=== PATIENT | male | born 1965 | race Caucasian/White ===

== ENCOUNTER → 2017-06-03 | Outpatient (CLI) | payer OTHER ==
--- NOTE | 2017-06-03 14:01 | US ---
EXAMINATION TYPE: US venous doppler duplex LE DATE OF EXAM: 06/03/2017 7:43 AM COMPARISON: NONE CLINICAL HISTORY: M79.604 Pain in right leg. Edema right leg, wound bottom of right foot x 2 years LOWER EXTREMITY VENOUS INSUFFICIENCY SIDE PERFORMED: bilateral 1) Color flow is present and patency is documented in the following vessels. No DVT or SVT is noted . EIV Common Femoral Vein Deep Femoral Vein Femoral Vein Popliteal Vein Proximal Calf Veins Greater Saph Vein Upper Small Saph Vein 2) There is venous reflux noted at the following venous levels: right EIV IMPRESSION: Venous reflux within the right external iliac vein. No deep venous thrombosis is identifi ed during this examination of the right lower extremity.
== END | disposition home or self-care (01) ==
LOC: RADUSWWP 06:56
PROVIDERS: ATTEND Surgery
DX: I87.2 Venous insufficiency (chronic) (peripheral) (principal); E13.621 Other specified diabetes mellitus with foot ulcer; M79.604 Pain in right leg
CPT/HCPCS: 93923; 93970

== ENCOUNTER → 2020-04-16 | Outpatient (CLI) | payer OTHER | END | disposition home or self-care (01) | LOC: LABWHC1 11:22 | PROVIDERS: ATTEND Family Medicine | DX: R05 Cough (principal); R50.9 Fever, unspecified; Z11.59 Encounter for screening for other viral diseases | CPT/HCPCS: U0003; C9803 ==

== ENCOUNTER 2020-09-01 18:28 | Inpatient (IN) | payer OTHER ==
--- NOTE | 2020-09-01 20:11 | XR ---
EXAMINATION TYPE: XR foot complete RT DATE OF EXAM: 09/01/2020 COMPARISON: 06/17/2017 HISTORY: Plantar ulcer. Foot infection TECHNIQUE: 3 views FINDINGS: There is soft tissue air bubbles in the forefoot on the lateral aspect of the foot at the f ourth and fifth metatarsal phalangeal joints. There is destructive changes on both sides of the third MP joint. There is plantar calcaneal spurring. There is some spurring of the intertarsal joints. IMPRESSION: Destructive changes on both sides of the third MP joint consistent with chronic osteomyel itis is a change compared to old exam. Soft tissue air bubbles consistent with cellulitis.
[2020-09-01] MEDS ORDERED: VANCOMYCIN IV PER PHARMACY 1 EACH MISC MISCELLANE PRN (20:25)
[2020-09-01] MEDS ORDERED: AMPICILLIN-SULBACTAM 3 GM in SODIUM CHLORIDE 0.9% 100 ML IVPB STA (20:25)
--- NOTE | 2020-09-01 20:25 | ED ---
General Adult HPI - General Chief complaint: Skin/Abscess/Foreign Body Stated complaint: diabetic wound rt foot Time Seen by Provider: 09/01/20 18:45 Source: patient Mode of arrival: ambulatory Limitations: no limitations - History of Present Illness Initial comments: Patient is a 55-year-old male past history of diabetes who presents to the emergency department reported right foot wound. Patient states that he has had this wound for approximately 5 years. Was going to the wound care clinic until about 2 years ago. States that the wound has been persistent however his has been dressing it. Today he went to Dr. Parker's office and Dr. Parker with concerns that he needed partial amputation therefore sent him into the emergency room for evaluation. Patient admits to increased swelling and drainage. Denies pain no fevers or chills. No history of vascular compromise. No other alleviating, the dictating or modifying factors - Related Data Home Medications Medication Instructions Recorded Confirmed Levothyroxine Sodium [Synthroid] 125 mcg PO DAILY 10/17/15 09/01/20 Cinnamon Bark [Cinnamon] 500 mg PO HS 09/01/20 09/01/20 Losartan-Hctz 50-12.5 mg [Hyzaar 1 tab PO HS 09/01/20 09/01/20 50-12.5] Multivitamins, Thera [Multivitamin 1 tab PO HS 09/01/20 09/01/20 (formulary)] metFORMIN HCL [Glucophage] 1,000 mg PO BID 09/01/20 09/01/20 sitaGLIPtin [Januvia] 50 mg PO HS 09/01/20 09/01/20 Allergies Allergy/AdvReac Type Severity Reaction Status Date / Time No Known Allergies Allergy Verified 09/01/20 19:46 Review of Systems ROS Statement: Those systems with pertinent positive or pertinent negative responses have been documented in the HPI. ROS Other: All systems not noted in ROS Statement are negative. Past Medical History Past Medical History: Diabetes Mellitus, Thyroid Disorder Additional Past Medical History / Comment(s): wound rt foot History of Any Multi-Drug Resistant Organisms: None Reported Past Surgical History: Orthopedic Surgery Additional Past Surgical History / Comment(s): ruben ankles, wound center procedures Past Anesthesia/Blood Transfusion Reactions: No Reported Reaction Past Psychological History: No Psychological Hx Reported Smoking Status: Current every day smoker Past Alcohol Use History: None Reported Past Drug Use History: None Reported - Past Family History Father Family Medical History: Cancer General Exam Limitations: no limitations Course Vital Signs 09/01/20 18:46 Temperature 99.1 F Pulse Rate 98 Respiratory 18 Rate Blood Pressure 176/75 O2 Sat by Pulse 98 Oximetry Medical Decision Making - Medical Decision Making Upon arrival patient is placed into room 28. Thorough history and physical exam was performed. Laboratory studies are obtained. X-rays performed of the patient's right lower externally which demonstrates a strep changes on both sides of the third MCP consistent with chronic osteomyelitis. Cellulitis. Informed the patient that he would require hospitalization for antibiotics for which the patient agreed to. Infectious disease and vascularly consult. Patient remained in stable condition awaiting a bed - Lab Data Result diagrams: 09/01/20 19:46 Lab Results 09/01/20 Range/Units 19:46 WBC 13.3 H (3.8-10.6) k/uL RBC 4.54 (4.30-5.90) m/uL Hgb 13.9 (13.0-17.5) gm/dL Hct 41.3 (39.0-53.0) % MCV 91.0 (80.0-100.0) fL MCH 30.6 (25.0-35.0) pg MCHC 33.7 (31.0-37.0) g/dL RDW 13.5 (11.5-15.5) % Plt Count 345 (150-450) k/uL MPV 7.1 Neutrophils % 73 % Lymphocytes % 15 % Monocytes % 4 % Eosinophils % 3 % Basophils % 2 % Neutrophils # 9.7 H (1.3-7.7) k/uL Lymphocytes # 1.9 (1.0-4.8) k/uL Monocytes # 0.6 (0-1.0) k/uL Eosinophils # 0.4 (0-0.7) k/uL Basophils # 0.2 (0-0.2) k/uL Disposition Clinical Impression: Type 2 diabetes mellitus with right diabetic foot infection, Osteomyelitis Disposition: ADMITTED IP TO THIS HOSP Condition: Serious Is patient prescribed a controlled substance at d/c from ED?: No Referrals: Niraj Parker DO [Primary Care Provider] - 1-2 days Decision to Admit Reason: Admit from EC Decision Date: 09/01/20 Decision Time: 20:25
[2020-09-01] MEDS ORDERED: NALOXONE 0.4 MG/ML 1 ML VIAL IV PRN (20:26)
[2020-09-01] MEDS ORDERED: VANCOMYCIN 2,000 MG in SODIUM CHLORIDE 0.9% 500 ML 500 ML IVPB STA (20:30)
[2020-09-01 20:47] LABS: Basophils # (A) 0.2 k/uL (0-0.2); Basophils % (A) 2 %; Eosinophils # (A) 0.4 k/uL (0-0.7); Eosinophils % (A) 3 %; HCT 41.3 % (39.0-53.0); HGB 13.9 gm/dL (13.0-17.5); Lymphocytes # (A) 1.9 k/uL (1.0-4.8); Lymphocytes % (A) 15 %; MCH 30.6 pg (25.0-35.0); MCHC 33.7 g/dL (31.0-37.0); Mean Platelet Volume 7.1; Monocytes # (A) 0.6 k/uL (0-1.0); Monocytes % (A) 4 %; Neutrophils # (A) 9.7 k/uL (1.3-7.7); Neutrophils % (A) 73 %; Platelet Count 345 k/uL (150-450); RBC 4.54 m/uL (4.30-5.90); RDW 13.5 % (11.5-15.5); WBC 13.3 k/uL (3.8-10.6)
[2020-09-01] MEDS ORDERED: NON FORMULARY DRUG (Cinnamon Bark [Cinnamon] 500 MG Capsule) PO SCH (21:00)
[2020-09-01 21:02] LABS: ALT 27 U/L (4-49); AST 30 U/L (17-59); African American GFR (CKD) >90 (>60 ml/min/1.73 sqM); Albumin 3.8 g/dL (3.5-5.0); Alkaline Phosphatase 72 U/L (38-126); Anion Gap 7 mmol/L; Blood Urea Nitrogen 13 mg/dL (9-20); Calcium 9.3 mg/dL (8.4-10.2); Carbon Dioxide 32 mmol/L (22-30); Chloride 93 mmol/L (98-107); Glucose 253 mg/dL (74-99); Non-African American GFR(CKD) >90 (>60 ml/min/1.73 sqM); Potassium 4.2 mmol/L (3.5-5.1); Sodium 132 mmol/L (137-145); Total Bilirubin 0.4 mg/dL (0.2-1.3); Total Protein 7.8 g/dL (6.3-8.2)
[2020-09-01] MEDS: LOSARTAN-HCTZ 50-12.5 MG 1 EACH TAB PO SCH (21:07)
[2020-09-01] MEDS: MULTIVITAMINS, THERA 1 EACH TAB PO SCH (21:08)
[2020-09-01 21:21] LABS: Erythrocyte Sedimentation Rate 91 mm/hr (0-15)
[2020-09-01 21:32] LABS: C Reactive Protein 176.6 mg/L (<10.0)
--- NOTE | 2020-09-01 22:01 | US ---
EXAMINATION TYPE: US venous doppler duplex LE RT DATE OF EXAM: 09/01/2020 9:40 PM COMPARISON: US 2017 CLINICAL HISTORY: dvt. Pain and swelling x 1 week. No hx of DVT. Patient unsure if he takes a blood t hinner. SIDE PERFORMED: Right TECHNIQUE: The lower extremity deep venous system is examined utilizing real time linear array sonog duran with graded compression, doppler sonography and color-flow sonography. VESSELS IMAGED: Common Femoral Vein Deep Femoral Vein Greater Saphenous Vein * Femoral Vein Popliteal Vein Small Saphenous Vein * Proximal Calf Veins (* superficial vessels) Right Leg: No evidence of DVT in veins imaged at this time from prox calf veins to CFV/GSV. Hypoecho ic area with hyperechoic center and vascular hilum seen within the right groin measuring 5.2 x 4.8 x 2.0 cm. Slightly limited imaging within the groin and of the distal femoral vein due to patient body habitus. IMPRESSION: No evidence of deep vein thrombosis in the right leg. There is large right inguinal lymp h node that measures 5.2 x 2 cm.
[2020-09-02] MEDS: INSULIN ASPART (NovoLOG) 100 UNIT/ML VIAL SQ SCH ×5 (00:03→21:06)
[2020-09-02] MEDS: LEVOTHYROXINE 125 MCG TAB PO SCH (06:39)
[2020-09-02 06:44] LABS: Glucose,Whole Blood 203 mg/dL (75-99)
[2020-09-02 09:32] LABS: Basophils # (A) 0.1 k/uL (0-0.2); Basophils % (A) 1 %; Eosinophils # (A) 0.4 k/uL (0-0.7); Eosinophils % (A) 3 %; HCT 41.9 % (39.0-53.0); HGB 13.8 gm/dL (13.0-17.5); Lymphocytes % (A) 16 %; MCH 30.3 pg (25.0-35.0); MCHC 32.9 g/dL (31.0-37.0); Mean Platelet Volume 7.1; Monocytes # (A) 0.4 k/uL (0-1.0); Monocytes % (A) 3 %; Neutrophils # (A) 9.2 k/uL (1.3-7.7); Neutrophils % (A) 74 %; Platelet Count 375 k/uL (150-450); RBC 4.56 m/uL (4.30-5.90); RDW 13.9 % (11.5-15.5); WBC 12.5 k/uL (3.8-10.6)
[2020-09-02 09:49] LABS: African American GFR (CKD) >90 (>60 ml/min/1.73 sqM); Anion Gap 8 mmol/L; Blood Urea Nitrogen 11 mg/dL (9-20); Carbon Dioxide 32 mmol/L (22-30); Chloride 94 mmol/L (98-107); Glucose 213 mg/dL (74-99); Non-African American GFR(CKD) >90 (>60 ml/min/1.73 sqM); Potassium 4.2 mmol/L (3.5-5.1); Sodium 134 mmol/L (137-145)
[2020-09-02] MEDS ORDERED: VANCOMYCIN 2,250 MG in SODIUM CHLORIDE 0.9% 500 ML 500 ML IVPB SCH (10:00)
[2020-09-02] MEDS ORDERED: IV FLUID CONTINUATION 800 ML IV ONE (10:57)
[2020-09-02 11:15] LABS: Glucose,Whole Blood 173 mg/dL (75-99)
[2020-09-02] MEDS ORDERED: MIDAZOLAM 2 MG/2 ML VIAL ONE (11:46)
[2020-09-02] MEDS ORDERED: KETAMINE 10 MG/ML 20 ML VIAL ONE (11:46)
[2020-09-02] MEDS ORDERED: fentaNYL (PF) 50 MCG/ML 2 ML AMP ONE (11:46)
[2020-09-02] MEDS ORDERED: PROPOFOL 10 MG/ML 20 ML VIAL IV ONE (11:46)
[2020-09-02] MEDS ORDERED: LACTATED RINGERS 1,000 ML IV ONE (11:50)
--- NOTE | 2020-09-02 11:52 | P.GSCN ---
History of Present Illness Consult date: 09/02/20 Reason for Consult: Chronic nonhealing right foot diabetic ulcer History of present illness: As a pleasant 55-year-old male patient with a history of diabetes or hypertension, and a chronic nonhealing wound to the right foot. The patient states he has had the wound on the plantar aspect of his right foot for 5 years, with intermittent wound care management. He has not been seen by the wound care center in over 2 years. He states that he follows with Dr. Parker and they have been managing the wound in the office, other than that his has been managing it for the last couple months. He states he has had increased pain and drainage from the wound on the plantar aspect of his foot. He has pain in all of his toes. He states he also noted redness in his spreading up his leg for the last week. He denies any fevers or chills. Eyes any prior history of peripheral arterial disease. 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 A x-ray the right foot was performed while in the emergency department that shows destructive changes on both sides of the third MTP joint consistent with chronic osteomyelitis is a change compared to the exam. Soft tissue air bubbles consistent with cellulitis. Venous Doppler was also completed of the right lower extremity that shows no evidence of deep vein thrombosis of the right leg. There is large right inguinal lymph node that measures 5.2 x 2 cm. Review of Systems A 14 point review systems was completed all pertinent positives and negatives as stated in the HPI. Past Medical History Past Medical History: Diabetes Mellitus, Hypertension, Thyroid Disorder Additional Past Medical History / Comment(s): wound rt foot History of Any Multi-Drug Resistant Organisms: None Reported Past Surgical History: Orthopedic Surgery Additional Past Surgical History / Comment(s): ruben ankles, wound center procedures Past Anesthesia/Blood Transfusion Reactions: No Reported Reaction Past Psychological History: No Psychological Hx Reported Smoking Status: Current every day smoker Past Alcohol Use History: None Reported Additional Past Alcohol Use History / Comment(s): has smoked for about 30 yrs; cut down to 5-6 cigarettes daily Past Drug Use History: None Reported - Past Family History Father Family Medical History: Cancer Medications and Allergies Home Medications Medication Instructions Recorded Confirmed Type Levothyroxine Sodium [Synthroid] 125 mcg PO DAILY 10/17/15 09/01/20 History Cinnamon Bark [Cinnamon] 500 mg PO HS 09/01/20 09/01/20 History Losartan-Hctz 50-12.5 mg [Hyzaar 1 tab PO HS 09/01/20 09/01/20 History 50-12.5] Multivitamins, Thera [Multivitamin 1 tab PO HS 09/01/20 09/01/20 History (formulary)] metFORMIN HCL [Glucophage] 1,000 mg PO BID 09/01/20 09/01/20 History sitaGLIPtin [Januvia] 50 mg PO HS 09/01/20 09/01/20 History Allergies Allergy/AdvReac Type Severity Reaction Status Date / Time No Known Allergies Allergy Verified 09/02/20 11:03 Surgical - Exam Vital Signs Temp Pulse Resp BP Pulse Ox 99.1 F 98 18 176/75 98 09/01/20 18:46 09/01/20 18:46 09/01/20 18:46 09/01/20 18:46 09/01/20 18:46 General appearance: The patient is alert, oriented, in no acute distress. Obese. HET: Head is normocephalic and atraumatic. Heart: S1 S2. Regular rate and rhythm. Lungs: No crackles or wheezes are heard. Abdomen: Soft, nontender, nondistended Extremities: Right lower extremity with edema, and redness half way up ty. Second toe with wound and scabbing at distal tip. Third toe with wet gangrene, soft. Fourth toe right, plantar surface cracked with drainage. Ulcer on plantar surface of foot measuring 2.5 x 3.5 cm, with 1-1/2 cm opening with undermining. 8 mm deep with foul odor and yellow drainage on dressing. Bilateral palpable dorsalis pedis pulses, positive bilateral posterior tibialis signal. Neurological: No focal deficits. Strength and sensation are grossly intact. Results X-ray of the right foot shows destructive changes on both sides of the third MTP joint consistent with chronic osteomyelitis is a change compared to the exam. Soft tissue air bubbles consistent with cellulitis. Venous Doppler was also completed of the right lower extremity that shows no evidence of deep vein thrombosis of the right leg. There is large right inguinal lymph node that measures 5.2 x 2 cm. - Labs 09/02/20 09:17 09/02/20 09:17 Abnormal Lab Results - Last 24 Hours (Table) 09/01/20 09/01/20 09/02/20 Range/Units 19:46 19:46 06:43 WBC 13.3 H (3.8-10.6) k/uL Neutrophils # 9.7 H (1.3-7.7) k/uL ESR 91 H (0-15) mm/hr Sodium 132 L (137-145) mmol/L Chloride 93 L (98-107) mmol/L Carbon Dioxide 32 H (22-30) mmol/L Glucose 253 H (74-99) mg/dL POC Glucose (mg/dL) 203 H (75-99) mg/dL C-Reactive Protein 176.6 H (<10.0) mg/L Microbiology - Last 24 Hours (Table) 09/01/20 19:46 Gram Stain - Preliminary Foot - Right Wound Culture - Preliminary Diabetes panel 09/01/20 Range/Units 19:46 Sodium 132 L (137-145) mmol/L Potassium 4.2 (3.5-5.1) mmol/L Chloride 93 L (98-107) mmol/L Carbon Dioxide 32 H (22-30) mmol/L BUN 13 (9-20) mg/dL Creatinine 0.72 (0.66-1.25) mg/dL Glucose 253 H (74-99) mg/dL Calcium 9.3 (8.4-10.2) mg/dL AST 30 (17-59) U/L ALT 27 (4-49) U/L Alkaline Phosphatase 72 (38-126) U/L Total Protein 7.8 (6.3-8.2) g/dL Albumin 3.8 (3.5-5.0) g/dL Calcium panel 09/01/20 Range/Units 19:46 Calcium 9.3 (8.4-10.2) mg/dL Albumin 3.8 (3.5-5.0) g/dL Pituitary panel 09/01/20 Range/Units 19:46 Sodium 132 L (137-145) mmol/L Potassium 4.2 (3.5-5.1) mmol/L Chloride 93 L (98-107) mmol/L Carbon Dioxide 32 H (22-30) mmol/L BUN 13 (9-20) mg/dL Creatinine 0.72 (0.66-1.25) mg/dL Glucose 253 H (74-99) mg/dL Calcium 9.3 (8.4-10.2) mg/dL Adrenal panel 09/01/20 Range/Units 19:46 Sodium 132 L (137-145) mmol/L Potassium 4.2 (3.5-5.1) mmol/L Chloride 93 L (98-107) mmol/L Carbon Dioxide 32 H (22-30) mmol/L BUN 13 (9-20) mg/dL Creatinine 0.72 (0.66-1.25) mg/dL Glucose 253 H (74-99) mg/dL Calcium 9.3 (8.4-10.2) mg/dL Total Bilirubin 0.4 (0.2-1.3) mg/dL AST 30 (17-59) U/L ALT 27 (4-49) U/L Alkaline Phosphatase 72 (38-126) U/L Total Protein 7.8 (6.3-8.2) g/dL Albumin 3.8 (3.5-5.0) g/dL Assessment and Plan Assessment: 1. Right foot chronic nonhealing diabetic ulcer 2. Osteomyelitis right third toe foot 3. Cellulitis right lower extremity 4. Diabetes mellitus 5. Hypertension Plan: 1. NPO 2. Patient will be scheduled for transmetatarsal amputation of the right foot today with Dr. Seals 3. Continue IV antibiotics per recommendations from infectious disease The impression and plan of care has been dictated as directed. Dr. Seals I performed a history and examination of this patient, discussed the same with the dictator. I agree with the dictator's note ,documented as a scribe. Any additional findings or plans will be noted.
[2020-09-02] MEDS ORDERED: ceFAZolin 4,000 MG in SODIUM CHLORIDE 0.9% 1,000 ML IRRIGATION ONE (12:31)
[2020-09-02 13:49] LABS: Glucose,Whole Blood 189 mg/dL (75-99)
[2020-09-02 14:14] VITALS: BMI 42.9
[2020-09-02 17:07] LABS: Glucose,Whole Blood 185 mg/dL (75-99)
[2020-09-02] MEDS ORDERED: MORPHINE SULFATE 2 MG/ML SYRINGE IVP PRN (17:52)
[2020-09-02] MEDS: HYDROcodone/APAP 7.5-325MG 1 EACH TAB PO PRN ×2 (18:14→22:41)
[2020-09-02 20:38] LABS: Glucose,Whole Blood 248 mg/dL (75-99)
--- NOTE | 2020-09-02 20:47 | P.OP ---
Date of Procedure: 09/02/20 Preoperative Diagnosis: Right third toe osteomyelitis with gangrene involving the plantar surface of foot Postoperative Diagnosis: Same Procedure(s) Performed: Right transmetatarsal amputation Right negative pressure wound VAC placement Anesthesia: epidural Surgeon: Vin Seals Estimated Blood Loss (ml): 50 Pathology: other (Right forefoot, wound cultures) Condition: stable Disposition: PACU Indications for Procedure: 55-year-old gentleman with history of diabetes and chronic right foot wounds presented to the hospital secondary to gangrene noted by his family physician. Patient has a history of diabetic foot wounds which have been treated in the wound care center for several years. 5 years ago he had a wound that was treated for approximately 3 years and healed and then developed another wound adjacent to this one over the last couple years. 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 He states his has been treating the wounds at home. He noticed increased redness and pain over the last couple of weeks and was seen at his primary cares office and sent in for antibiotics. He underwent xray that showed osteomylelitis involving the 3rd toe with soft tissue involvement. Upon evaluation the plantar wound was tunneling to the 3rd toe and due to this it was determined to perform a transmetatarsal amputation. Description of Procedure: After written and informed consent was obtained from the patient and all risks, benefits and complications were discussed the patient was brought to the operative suite and laid in a supine position. The area of the right foot was prepped and draped in the usual sterile fashion. Timeout was performed and patient was receiving antibiotics. An incision was created in a [place] fashion incorporating the plantar ulcer with a 10 blade scalpel and dissection was carried down to the metatarsal bones with electrocautery. Upon dissection purulent drainage was noted deep to the third toe and ulcer and cultures were obtain. Once the metatarsal bones were dissected a oscillating saw was utilized and toes 1 through 5 were resected at the proximal metatarsal bone. The soft tissue was the removed with a 10 blade scalpel and the forefoot was sent for pathology. Bleeding was controlled with electrocautery. The remaining tissue was then attempted to be approximated for closure but due to the odd shaped incision line due to the plantar wound this was unable to be performed in a tension free repair. The area was irrigated with antibiotic solution and once hemostatic the subcutaneous tissue was reapproximated over the remaining bone with 3-0 Vicryl suture. Skin edges were then reapproximated with 3-0 nylon suture in a vertical mattress fashion. The area that was unable to be brought together was packed with a black sponge and a wound VAC was placed in normal fashion. The patient tolerated the procedure well and was sent to PACU for recovery.
--- NOTE | 2020-09-02 20:49 | P.HPIM ---
History of Present Illness H&P Date: 09/02/20 Patient is a 55-year-old male past history of diabetes who was admitted from the emergency department reported right foot wound. Patient states that he has had this wound for approximately 5 years. However he was first diagnosed in 2015 and sent to vascular surgery and wound care center. Patient never returned my office until 2019. Which he was again treated at the wound care center. In the interim time I'm not too sure where he is doing his diabetic care as he has been noncompliant 2015. He was reestablished and fall late fall of 2019 where he was seen by my nurse practitioner Teresa Pressley who initiated wound care again. States that the wound has been persistent however his has been dressing it. I sent him in for an office yesterday with concerns that he needed partial amputation therefore sent him into the emergency room for evaluation. Patient admits to increased swelling and drainage. Denies pain no fevers or chills. No history of vascular compromise. I'm not aware of patient's current diabetic status as well as his vascular compromise. Review of Systems GENERAL: Patient denies fever. Denies chills. EYES: Denies blurred vision. Denies vision changes. Denies eye pain. EARS, NOSE, MOUTH, & THROAT: Denies headache. Denies sore throat. Denies ear pain. RESPIRATORY: Denies cough. Denies shortness of breath. Denies sputum production. Denies hemoptysis. CARDIOVASCULAR: Denies chest pain or pressure. Denies palpitations. Denies arrhythmias. GASTROINTESTINAL: Denies abdominal pain. Denies diarrhea. Denies constipation. Denies nausea. Denies vomiting. Denies heartburn. Denies blood in the stool. GENITOURINARY: Denies urinary frequency. Denies burning. Denies dysuria. Denies cloudy urine. Denies blood in the urine. MUSCULOSKELETAL: Gangrenous changes to his right foot and cellulitic changes to his right lower extremity as noted in chief complaint. INTEGUMENTARY: Denies pruitis. Denies rash. PSYCHIATRIC: Denies suicidal or homicial ideations. Patient is visibly upset disorders be home for the holidays ENDOCRINE: Noncompliant diabetes doesn't follow routine visits doesn't follow routine orders. 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 HEMATOLOGIC: Denies bleeding disorders. Past Medical History Past Medical History: Diabetes Mellitus, Hypertension, Thyroid Disorder Additional Past Medical History / Comment(s): wound rt foot History of Any Multi-Drug Resistant Organisms: None Reported Past Surgical History: Orthopedic Surgery Additional Past Surgical History / Comment(s): ruben ankles, wound center procedures Past Anesthesia/Blood Transfusion Reactions: No Reported Reaction Past Psychological History: No Psychological Hx Reported Smoking Status: Current every day smoker Past Alcohol Use History: None Reported Additional Past Alcohol Use History / Comment(s): has smoked for about 30 yrs; cut down to 5-6 cigarettes daily Past Drug Use History: None Reported - Past Family History Father Family Medical History: Cancer Medications and Allergies Home Medications Medication Instructions Recorded Confirmed Type Levothyroxine Sodium [Synthroid] 125 mcg PO DAILY 10/17/15 09/01/20 History Cinnamon Bark [Cinnamon] 500 mg PO HS 09/01/20 09/01/20 History Losartan-Hctz 50-12.5 mg [Hyzaar 1 tab PO HS 09/01/20 09/01/20 History 50-12.5] Multivitamins, Thera [Multivitamin 1 tab PO HS 09/01/20 09/01/20 History (formulary)] metFORMIN HCL [Glucophage] 1,000 mg PO BID 09/01/20 09/01/20 History sitaGLIPtin [Januvia] 50 mg PO HS 09/01/20 09/01/20 History Allergies Allergy/AdvReac Type Severity Reaction Status Date / Time No Known Allergies Allergy Verified 09/02/20 11:03 Physical Exam Osteopathic Statement: *. No significant issues noted on an osteopathic structural exam other than those noted in the History and Physical/Consult. Vitals: Vital Signs Temp Pulse Pulse Pulse Resp BP BP 09/02/20 16:36 66 153/88 09/02/20 16:21 65 144/80 09/02/20 16:07 65 185/112 09/02/20 15:51 63 175/98 09/02/20 15:21 62 157/89 09/02/20 15:07 16 09/02/20 15:06 98.0 F 68 18 140/79 09/02/20 14:59 98.3 F 65 16 127/69 09/02/20 14:16 62 16 168/83 09/02/20 14:00 79 14 156/75 09/02/20 13:45 72 16 174/76 09/02/20 13:35 96.9 F L 69 14 156/71 09/02/20 10:58 70 16 162/72 09/02/20 10:45 98.7 F 74 17 166/83 09/02/20 09:15 97.8 F 73 16 153/77 09/02/20 09:10 16 09/02/20 08:14 73 14 153/77 09/02/20 07:22 99 F 69 18 140/70 09/02/20 06:37 81 19 146/66 09/02/20 01:00 99.8 F H 77 16 128/68 09/01/20 22:17 100.1 F H 79 18 122/66 Pulse Ox 09/02/20 16:36 09/02/20 16:21 09/02/20 16:07 09/02/20 15:51 09/02/20 15:21 09/02/20 15:07 09/02/20 15:06 98 09/02/20 14:59 98 09/02/20 14:16 95 09/02/20 14:00 95 09/02/20 13:45 100 09/02/20 13:35 100 09/02/20 10:58 99 09/02/20 10:45 98 09/02/20 09:15 95 09/02/20 09:10 09/02/20 08:14 96 09/02/20 07:22 95 09/02/20 06:37 95 09/02/20 01:00 95 09/01/20 22:17 95 Intake and Output 09/02/20 09/02/20 09/02/20 06:59 14:59 22:59 Intake Total 1051.5 Output Total 50 Balance 1001.5 Intake: IV 1051.5 Output: Estimated Blood Loss 50 Other: # Voids 1 # Bowel Movements 1 Weight 135.624 kg 135.624 kg GENERAL: This is a -55 year-old in moderate distress at the time of examination. Pleasant and cooperative. HEENT: Head is atraumatic, normocephalic. Pupils are equal, round, and reactive to light. Sclerae anicteric. Conjunctivae are clear. Mucus membranes of the mouth are moist. Neck is supple. RESPIRATORY: Clear to auscultation. No wheezes, rales, or rhonchi. No use of accessory muscles. Patient maintaining oxygen saturation greater than 92%. No chest wall tenderness is noted on palpation or with deep breathing. CARDIOVASCULAR: Regular rate and rhythm. GASTROINTESTINAL: No distention noted. Abdomen soft and round. Normal active bowel sounds auscultated x 4 quadrants. No pain or tenderness noted upon palpation. EXTREMITIES: Right lower extremity with edema, and redness half way up ty. Second toe with wound and scabbing at distal tip. Third toe with wet gangrene, soft. Fourth toe right, plantar surface cracked with drainage. Ulcer on plantar surface of foot measuring 2.5 x 3.5 cm, with 1-1/2 cm opening with undermining. 8 mm deep with foul odor and yellow drainage on dressing. Bilateral palpable dorsalis pedis pulses, positive bilateral posterior tibialis signal. Neurological: No focal deficits. Strength and sensation are grossly intact. NEUROLOGIC: Cranial nerves II-XII intact. PSYCHIATRIC: Awake, alert, and oriented X 3. Results CBC & Chem 7: 09/02/20 09:17 09/02/20 09:17 Labs: Abnormal Lab Results - Last 24 Hours (Table) 09/01/20 09/01/20 09/02/20 Range/Units 19:46 19:46 06:43 WBC 13.3 H (3.8-10.6) k/uL Neutrophils # 9.7 H (1.3-7.7) k/uL ESR 91 H (0-15) mm/hr Sodium 132 L (137-145) mmol/L Chloride 93 L (98-107) mmol/L Carbon Dioxide 32 H (22-30) mmol/L Glucose 253 H (74-99) mg/dL POC Glucose (mg/dL) 203 H (75-99) mg/dL C-Reactive Protein 176.6 H (<10.0) mg/L 09/02/20 09/02/20 09/02/20 Range/Units 09:17 09:17 11:13 WBC 12.5 H (3.8-10.6) k/uL Neutrophils # 9.2 H (1.3-7.7) k/uL ESR (0-15) mm/hr Sodium 134 L (137-145) mmol/L Chloride 94 L (98-107) mmol/L Carbon Dioxide 32 H (22-30) mmol/L Glucose 213 H (74-99) mg/dL POC Glucose (mg/dL) 173 H (75-99) mg/dL C-Reactive Protein (<10.0) mg/L 09/02/20 09/02/20 Range/Units 13:48 17:04 WBC (3.8-10.6) k/uL Neutrophils # (1.3-7.7) k/uL ESR (0-15) mm/hr Sodium (137-145) mmol/L Chloride (98-107) mmol/L Carbon Dioxide (22-30) mmol/L Glucose (74-99) mg/dL POC Glucose (mg/dL) 189 H 185 H (75-99) mg/dL C-Reactive Protein (<10.0) mg/L Microbiology - Last 24 Hours (Table) 09/01/20 19:46 Gram Stain - Preliminary Foot - Right Wound Culture - Preliminary Group D Enterococcus Thrombosis Risk Factor Assmnt - Choose All That Apply Each Factor Represents 1 point: Age 41-60 years Each Risk Factor Represents 2 Points: Major surgery Thrombosis Risk Factor Assessment Total Risk Factor Score: 3 Thrombosis Risk Factor Assessment Level: Moderate Risk Assessment and Plan (1) Noncompliance with diabetes treatment Current Visit: Yes Status: Acute Code(s): Z91.19 - PATIENT'S NONCOMPLIANCE W OTH MEDICAL TREATMENT AND REGIMEN SNOMED Code(s): 0531934 (2) Osteomyelitis Current Visit: Yes Status: Acute Code(s): M86.9 - OSTEOMYELITIS, UNSPECIFIED SNOMED Code(s): 24573287 (3) Type 2 diabetes mellitus with right diabetic foot infection Current Visit: Yes Status: Acute Code(s): E11.69 - TYPE 2 DIABETES MELLITUS WITH OTHER SPECIFIED COMPLICATION SNOMED Code(s): 02392463 (4) Diabetic foot ulcer associated with type 2 diabetes mellitus Current Visit: No Status: Acute Code(s): E11.621 - TYPE 2 DIABETES MELLITUS WITH FOOT ULCER; L97.509 - NON-PRESSURE CHRONIC ULCER OTH PRT UNSP FOOT W UNSP SEVERITY SNOMED Code(s): 8210587681788 (5) Gram-negative infection Current Visit: No Status: Acute Code(s): A49.9 - BACTERIAL INFECTION, UNSPECIFIED SNOMED Code(s): 422632641 (6) Onychomycosis due to dermatophyte Current Visit: No Status: Acute Code(s): B35.1 - TINEA UNGUIUM SNOMED Code(s): 512579074 (7) Smoker unmotivated to quit Current Visit: No Status: Acute Code(s): F17.200 - NICOTINE DEPENDENCE, UNSPECIFIED, UNCOMPLICATED SNOMED Code(s): 16452098 Plan: Plan admit patient infectious disease and vascular consultations and progress patient will undergo a transmetatarsal amputation by vascular surgery. Diabetic education lifestyle modifications and progress. Patient wants to be home for the holidays and we'll see how he does. I tried to explain his condition is worsening and risks loss of limb or life. I still patient understands the grave risk of his condition. Time with Patient: Greater than 30
[2020-09-02] MEDS: MULTIVITAMINS, THERA 1 EACH TAB PO SCH (21:07)
[2020-09-02] MEDS: LOSARTAN-HCTZ 50-12.5 MG 1 EACH TAB PO SCH (21:33)
[2020-09-02 22:24] LABS: HCT 38.9 % (39.0-53.0); HGB 13.2 gm/dL (13.0-17.5); MCH 31.2 pg (25.0-35.0); MCV 91.8 fL (80.0-100.0); Mean Platelet Volume 7.5; Platelet Count 377 k/uL (150-450); RBC 4.24 m/uL (4.30-5.90); RDW 13.5 % (11.5-15.5); WBC 15.1 k/uL (3.8-10.6)
--- NOTE | 2020-09-02 22:55 | P.CONS ---
History of Present Illness - Reason for Consult Consult date: 09/02/20 diabetic foot infection Requesting physician: Maritza Espinosa - Chief Complaint right foot pain and draiange x days - History of Present Illness Patient is a 55-year-old male with a past medical history significant for diabetes mellitus and this patient have a chronic nonhealing wound to the right foot on the plantar aspect almost for 5 years and the patient has been following at the [facility] care center patient presented to [facility] ER yesterday for evaluation of increasing pain and drainage from wound on the plantar aspect of his right foot patient is complaining of pain in all his toes and the redness was spreading from his toes to his leg patient described the pain to be throbbing almost 10 of 10 in severity with no radiation he did have some drainage with the symptom the patient was evaluated by the ER physician on arrival to the ER patient did have low-grade fever 100.1 F patient did have vital of 13 point 3 repeat is 15.1 creatinine was normal cultures are currently pending patient did have x-rays of the foot which showed destructive changes on both sides of the third MP joint consistent with chronic osteomyelitis soft tissue air bubbles consistent with cellulitis patient was taken to the OR this afternoon in this patient who is status post right transmetatarsal amputation and application of the wound VAC patient was started on vancomycin infectious was consulted for further management of antibiotic therapy. Review of Systems Positive point has been mentioned in HPI rest of the systems are negative. Past Medical History Past Medical History: Diabetes Mellitus, Hypertension, Thyroid Disorder Additional Past Medical History / Comment(s): wound rt foot History of Any Multi-Drug Resistant Organisms: None Reported Past Surgical History: Orthopedic Surgery Additional Past Surgical History / Comment(s): ruben ankles, wound center procedures Past Anesthesia/Blood Transfusion Reactions: No Reported Reaction Past Psychological History: No Psychological Hx Reported Smoking Status: Current every day smoker Past Alcohol Use History: None Reported Additional Past Alcohol Use History / Comment(s): has smoked for about 30 yrs; cut down to 5-6 cigarettes daily Past Drug Use History: None Reported - Past Family History Father Family Medical History: Cancer Medications and Allergies Home Medications Medication Instructions Recorded Confirmed Type Levothyroxine Sodium [Synthroid] 125 mcg PO DAILY 10/17/15 09/01/20 History Cinnamon Bark [Cinnamon] 500 mg PO HS 09/01/20 09/01/20 History Losartan-Hctz 50-12.5 mg [Hyzaar 1 tab PO HS 09/01/20 09/01/20 History 50-12.5] Multivitamins, Thera [Multivitamin 1 tab PO HS 09/01/20 09/01/20 History (formulary)] metFORMIN HCL [Glucophage] 1,000 mg PO BID 09/01/20 09/01/20 History sitaGLIPtin [Januvia] 50 mg PO HS 09/01/20 09/01/20 History Allergies Allergy/AdvReac Type Severity Reaction Status Date / Time No Known Allergies Allergy Verified 09/02/20 11:03 Physical Exam Vitals: Vital Signs Temp Pulse Pulse Pulse Resp BP BP 09/02/20 15:07 16 09/02/20 14:59 98.3 F 65 16 127/69 09/02/20 14:16 62 16 168/83 09/02/20 14:00 79 14 156/75 09/02/20 13:45 72 16 174/76 09/02/20 13:35 96.9 F L 69 14 156/71 09/02/20 10:58 70 16 162/72 09/02/20 10:45 98.7 F 74 17 166/83 09/02/20 09:15 97.8 F 73 16 153/77 09/02/20 09:10 16 09/02/20 08:14 73 14 153/77 09/02/20 07:22 99 F 69 18 140/70 09/02/20 06:37 81 19 146/66 09/02/20 01:00 99.8 F H 77 16 128/68 09/01/20 22:17 100.1 F H 79 18 122/66 09/01/20 18:46 99.1 F 98 18 176/75 Pulse Ox 09/02/20 15:07 09/02/20 14:59 98 09/02/20 14:16 95 09/02/20 14:00 95 09/02/20 13:45 100 09/02/20 13:35 100 09/02/20 10:58 99 09/02/20 10:45 98 09/02/20 09:15 95 09/02/20 09:10 09/02/20 08:14 96 09/02/20 07:22 95 09/02/20 06:37 95 09/02/20 01:00 95 09/01/20 22:17 95 09/01/20 18:46 98 Intake and Output 09/02/20 09/02/20 09/02/20 06:59 14:59 22:59 Intake Total 1051.5 Output Total 50 Balance 1001.5 Intake: IV 1051.5 Output: Estimated Blood Loss 50 Other: Weight 135.624 kg 135.624 kg GENERAL DESCRIPTION: Middle-aged male lying in bed, no distress. No tachypnea or accessory muscle of respiration use. HEENT: Shows Pallor , no scleral icterus. Oral mucous membrane is dry. NECK: Trachea central, no thyromegaly. LUNGS: Unlabored breathing. Clear to auscultation anteriorly. No wheeze or crackle. HEART: S1, S2, regular rate and rhythm. ABDOMEN: Soft, no tenderness , guarding or rigidity EXTREMITIES: Right foot transmetatarsal amputation site is currently covered with a wound VAC with minimal bloodstained drainage. SKIN: No rash, no masses palpable. NEUROLOGICAL: The patient is awake, alert, oriented x3, mood and affect normal. Results CBC & Chem 7: 09/02/20 21:58 09/02/20 09:17 Labs: Abnormal Lab Results - Last 24 Hours (Table) 09/01/20 09/01/20 09/02/20 Range/Units 19:46 19:46 06:43 WBC 13.3 H (3.8-10.6) k/uL Neutrophils # 9.7 H (1.3-7.7) k/uL ESR 91 H (0-15) mm/hr Sodium 132 L (137-145) mmol/L Chloride 93 L (98-107) mmol/L Carbon Dioxide 32 H (22-30) mmol/L Glucose 253 H (74-99) mg/dL POC Glucose (mg/dL) 203 H (75-99) mg/dL C-Reactive Protein 176.6 H (<10.0) mg/L 09/02/20 09/02/20 09/02/20 Range/Units 09:17 09:17 11:13 WBC 12.5 H (3.8-10.6) k/uL Neutrophils # 9.2 H (1.3-7.7) k/uL ESR (0-15) mm/hr Sodium 134 L (137-145) mmol/L Chloride 94 L (98-107) mmol/L Carbon Dioxide 32 H (22-30) mmol/L Glucose 213 H (74-99) mg/dL POC Glucose (mg/dL) 173 H (75-99) mg/dL C-Reactive Protein (<10.0) mg/L 09/02/20 Range/Units 13:48 WBC (3.8-10.6) k/uL Neutrophils # (1.3-7.7) k/uL ESR (0-15) mm/hr Sodium (137-145) mmol/L Chloride (98-107) mmol/L Carbon Dioxide (22-30) mmol/L Glucose (74-99) mg/dL POC Glucose (mg/dL) 189 H (75-99) mg/dL C-Reactive Protein (<10.0) mg/L Microbiology - Last 24 Hours (Table) 09/01/20 19:46 Gram Stain - Preliminary Foot - Right Wound Culture - Preliminary Assessment and Plan Assessment: -patient presented hospital with right diabetic foot infection in this patient was noticed to have right third toe osteomyelitis with gangrene involving the plantar aspect of the foot and this patient is status post right transmetatarsal amputation in the unlikely unless the need for will be polymicrobial mamie usually associated with this type of infection with underlying diabetes mellitus (1) Osteomyelitis Current Visit: Yes Status: Acute Code(s): M86.9 - OSTEOMYELITIS, UNSPECIFIED SNOMED Code(s): 14689438 (2) Type 2 diabetes mellitus with right diabetic foot infection Current Visit: Yes Status: Acute Code(s): E11.69 - TYPE 2 DIABETES MELLITUS WITH OTHER SPECIFIED COMPLICATION SNOMED Code(s): 62131493 Plan: 1-vancomycin pharmacy to dose her with a target trough of 15 while watching her kidney function and Vanco trough closely. 2-Unasyn 3 g every 6 hours We will follow on clinical condition and cultures to further adjust medication if needed Thank you for this consultation we will follow the patient along with you Time with Patient: Greater than 30
[2020-09-02] MEDS: AMPICILLIN-SULBACTAM 3 GM in SODIUM CHLORIDE 0.9% 100 ML IVPB SCH (23:31)
[2020-09-03] MEDS: VANCOMYCIN 2,250 MG in SODIUM CHLORIDE 0.9% 500 ML 500 ML IVPB SCH ×2 (00:31→13:08)
[2020-09-03] MEDS: AMPICILLIN-SULBACTAM 3 GM in SODIUM CHLORIDE 0.9% 100 ML IVPB SCH ×4 (05:22→23:28)
[2020-09-03 05:33] LABS: HCT 38.1 % (39.0-53.0); HGB 12.8 gm/dL (13.0-17.5); MCH 30.5 pg (25.0-35.0); MCHC 33.5 g/dL (31.0-37.0); MCV 91.1 fL (80.0-100.0); Mean Platelet Volume 7.1; Platelet Count 329 k/uL (150-450); RBC 4.19 m/uL (4.30-5.90); RDW 13.4 % (11.5-15.5); WBC 12.1 k/uL (3.8-10.6)
[2020-09-03] MEDS: HYDROcodone/APAP 7.5-325MG 1 EACH TAB PO PRN ×2 (07:35→16:43)
[2020-09-03] MEDS: LEVOTHYROXINE 125 MCG TAB PO SCH (07:36)
[2020-09-03 07:46] LABS: Glucose,Whole Blood 201 mg/dL (75-99)
[2020-09-03] MEDS: INSULIN ASPART (NovoLOG) 100 UNIT/ML VIAL SQ SCH ×4 (08:04→20:13)
--- NOTE | 2020-09-03 08:52 | P.PN ---
Subjective Progress Note Date: 09/03/20 Principal diagnosis: right Foot Osteomyelitis, nonhealing diabetic wound, gangrene right foot third toe The Patient is status postop day #1 for a right transmetatarsal amputation with wound VAC application. He is overall doing well. States he does have some pain to the right lower extremity. He is taking pain medication with good relief. Wound VAC is intact with good suction. He has had no acute changes through the night, he remains afebrile. Infectious disease is on consult, he is currently on vancomycin and Unasyn. Objective - Vital Signs Vital signs: Vital Signs Temp 98.3 F 09/03/20 01:23 Pulse 77 09/03/20 01:23 Resp 16 09/03/20 01:23 BP 157/75 09/03/20 01:23 Pulse Ox 92 L 09/03/20 01:23 Intake & Output 09/02/20 09/03/20 09/03/20 18:59 06:59 18:59 Intake Total 1051.5 150 Output Total 50 300 Balance 1001.5 -150 Weight 135.624 kg Intake: IV 1051.5 Oral 150 Output: Urine 300 Estimated Blood Loss 50 Other: # Voids 1 2 # Bowel Movements 1 - Exam General appearance: The patient is alert, oriented, in no acute distress. HET: Head is normocephalic and atraumatic. Neck: Supple without lymphadenopathy. Trachea midline. Extremities: Right lower extremity redness has improved, right TMA site with intact wound VAC dressing with good suction. He has palpable bilateral dorsalis pedis pulses with good capillary refill. Neurological: No focal deficits. Strength and sensation are grossly intact. - Labs CBC & Chem 7: 09/03/20 05:04 09/02/20 09:17 Labs: Abnormal Lab Results - Last 24 Hours (Table) 09/02/20 09/02/20 09/02/20 Range/Units 09:17 09:17 11:13 WBC 12.5 H (3.8-10.6) k/uL RBC (4.30-5.90) m/uL Hgb (13.0-17.5) gm/dL Hct (39.0-53.0) % Neutrophils # 9.2 H (1.3-7.7) k/uL Sodium 134 L (137-145) mmol/L Chloride 94 L (98-107) mmol/L Carbon Dioxide 32 H (22-30) mmol/L Glucose 213 H (74-99) mg/dL POC Glucose (mg/dL) 173 H (75-99) mg/dL 09/02/20 09/02/20 09/02/20 Range/Units 13:48 17:04 20:36 WBC (3.8-10.6) k/uL RBC (4.30-5.90) m/uL Hgb (13.0-17.5) gm/dL Hct (39.0-53.0) % Neutrophils # (1.3-7.7) k/uL Sodium (137-145) mmol/L Chloride (98-107) mmol/L Carbon Dioxide (22-30) mmol/L Glucose (74-99) mg/dL POC Glucose (mg/dL) 189 H 185 H 248 H (75-99) mg/dL 09/02/20 09/03/20 09/03/20 Range/Units 21:58 05:04 07:44 WBC 15.1 H 12.1 H (3.8-10.6) k/uL RBC 4.24 L 4.19 L (4.30-5.90) m/uL Hgb 12.8 L (13.0-17.5) gm/dL Hct 38.9 L 38.1 L (39.0-53.0) % Neutrophils # (1.3-7.7) k/uL Sodium (137-145) mmol/L Chloride (98-107) mmol/L Carbon Dioxide (22-30) mmol/L Glucose (74-99) mg/dL POC Glucose (mg/dL) 201 H (75-99) mg/dL Microbiology - Last 24 Hours (Table) 09/02/20 13:30 Gram Stain - Preliminary Foot - Right Wound Culture - Preliminary 09/01/20 19:46 Blood Culture - Preliminary Blood No Growth after 24 hours 09/01/20 19:46 Blood Culture - Preliminary Blood No Growth after 24 hours 09/02/20 13:30 Anaerobic Culture - Preliminary Foot - Right 09/01/20 19:46 Gram Stain - Preliminary Foot - Right Wound Culture - Preliminary Group D Enterococcus Assessment and Plan Assessment: 1. Postop day #1 for right transmetatarsal amputation with wound VAC placement 2. Right foot chronic nonhealing diabetic ulcer 3. Osteomyelitis right third toe wet gangrene 4. Cellulitis right lower extremity 5. Diabetes mellitus 6. Hypertension Plan: Supportive care Diet as tolerated Continue with wound VAC management, patient will need home care for wound VAC management on discharge Continue IV antibiotics per recommendations from infectious disease Continue with pain management Consult for physical therapy ordered Consult Case Management for Homecare with Wound vac The above dictated assessment and findings were discussed with Dr. Seals. The impression and plan of care have been directed as dictated.
[2020-09-03 09:47] LABS: Chol/HDL Ratio 4.62; LDL Cholesterol,Calculated 65.8 mg/dL (0.0-131.0); VLDL Calculation 28.2 mg/dL (5.00-40.00)
[2020-09-03 11:27] LABS: Glucose,Whole Blood 286 mg/dL (75-99)
[2020-09-03] MEDS: INSULIN DETEMIR (LEVEMIR) 100 UNIT/ML SYR SQ SCH (14:56)
[2020-09-03 16:46] LABS: Hemoglobin A1C 9.4 % (4.0-6.0)
[2020-09-03 17:19] LABS: Glucose,Whole Blood 163 mg/dL (75-99)
[2020-09-03] MEDS: metFORMIN 500 MG TAB PO SCH (17:33)
[2020-09-03] MEDS: MULTIVITAMINS, THERA 1 EACH TAB PO SCH (20:00)
[2020-09-03] MEDS: LOSARTAN-HCTZ 50-12.5 MG 1 EACH TAB PO SCH (20:00)
[2020-09-03 20:09] LABS: Glucose,Whole Blood 228 mg/dL (75-99)
--- NOTE | 2020-09-03 22:57 | PN ---
PROGRESS NOTE DATE OF SERVICE: 09/03/2020 REASON FOR FOLLOWUP: Right diabetic foot infection. INTERVAL COURSE: The patient is currently afebrile. Patient is breathing comfortably. The patient denies having any chest pain. No shortness of breath or cough. Overall pain and discomfort to the right foot is currently controlled. No nausea, no vomiting. No diarrhea. PHYSICAL EXAMINATION: Blood pressure 150/75 with a pulse of 71, temperature 98.7. He is 97% on room air. General description: The patient is a middle-aged male lying in bed in no distress. Respiratory system: Unlabored breathing. Clear to auscultation anteriorly. Heart S1, S2. Regular rate and rhythm. Abdomen: Soft. No tenderness. Right foot transmetatarsal amputation site wound currently covered with wound VAC. LABS: Hemoglobin is 12.1, white count 12.1. Culture with group D Enterococcus. Blood culture negative. DIAGNOSTIC IMPRESSION AND PLAN: Patient with right diabetic foot infection gangrene status post transmetatarsal amputation in view of extensive infection. The patient will need outpatient IV antibiotic therapy for which a PICC line will be placed as blood culture negative. Discharge medications depend on the culture report. Continue supportive care. MMODL / IJN: [id number] /
--- NOTE | 2020-09-03 23:01 | P.PN ---
Subjective Progress Note Date: 09/03/20 Symptoms pleasant 55-year-old white male who was admitted for diabetic right foot with gangrenous changes and osteomyelitis. He underwent trans-metatarsal amputation of the right foot with wound VAC. He is doing much better today his cellulitis of his right lower extremity has improved. He is feeling and illness has improved as well. His sugars remain elevated in the 200 range and we will address this today. Objective - Vital Signs Vital signs: Vital Signs Temp 98.7 F 09/03/20 19:26 Pulse 71 09/03/20 19:26 Resp 16 09/03/20 19:26 BP 150/75 09/03/20 19:26 Pulse Ox 97 09/03/20 19:26 Intake & Output 09/03/20 09/03/20 09/04/20 06:59 18:59 06:59 Intake Total 150 Output Total 300 Balance -150 Intake: Oral 150 Output: Urine 300 Other: # Voids 2 3 1 - Exam GENERAL: This is a -55 year-old in moderate distress at the time of examination. Pleasant and cooperative. HEENT: Head is atraumatic, normocephalic. Pupils are equal, round, and reactive to light. Sclerae anicteric. Conjunctivae are clear. Mucus membranes of the mouth are moist. Neck is supple. RESPIRATORY: Clear to auscultation. No wheezes, rales, or rhonchi. No use of accessory muscles. Patient maintaining oxygen saturation greater than 92%. No chest wall tenderness is noted on palpation or with deep breathing. CARDIOVASCULAR: Regular rate and rhythm. GASTROINTESTINAL: No distention noted. Abdomen soft and round. Normal active b owel sounds auscultated x 4 quadrants. No pain or tenderness noted upon palpation. EXTREMITIES: Right lower extremity with wound VAC in place post transmetatarsal amputation. Erythema and cellulitis and pain has improved significantly. right lower extremity has improved overnight NEUROLOGIC: Cranial nerves II-XII intact. PSYCHIATRIC: Awake, alert, and oriented X 3. - Labs CBC & Chem 7: 09/03/20 05:04 09/02/20 09:17 Labs: Abnormal Lab Results - Last 24 Hours (Table) 09/03/20 09/03/20 09/03/20 Range/Units 05:04 05:04 05:04 WBC 12.1 H (3.8-10.6) k/uL RBC 4.19 L (4.30-5.90) m/uL Hgb 12.8 L (13.0-17.5) gm/dL Hct 38.1 L (39.0-53.0) % POC Glucose (mg/dL) (75-99) mg/dL Hemoglobin A1c 9.4 H (4.0-6.0) % HDL Cholesterol 26.0 L (40.0-60.0) mg/dL 09/03/20 09/03/20 09/03/20 Range/Units 07:44 11:16 17:15 WBC (3.8-10.6) k/uL RBC (4.30-5.90) m/uL Hgb (13.0-17.5) gm/dL Hct (39.0-53.0) % POC Glucose (mg/dL) 201 H 286 H 163 H (75-99) mg/dL Hemoglobin A1c (4.0-6.0) % HDL Cholesterol (40.0-60.0) mg/dL 09/03/20 Range/Units 20:06 WBC (3.8-10.6) k/uL RBC (4.30-5.90) m/uL Hgb (13.0-17.5) gm/dL Hct (39.0-53.0) % POC Glucose (mg/dL) 228 H (75-99) mg/dL Hemoglobin A1c (4.0-6.0) % HDL Cholesterol (40.0-60.0) mg/dL Microbiology - Last 24 Hours (Table) 09/01/20 19:46 Gram Stain - Final Foot - Right Wound Culture - Final Enterococcus faecalis Beta Hemolytic Strep Group C 09/02/20 13:30 Gram Stain - Preliminary Foot - Right Wound Culture - Preliminary 09/01/20 19:46 Blood Culture - Preliminary Blood No Growth after 24 hours 09/01/20 19:46 Blood Culture - Preliminary Blood No Growth after 24 hours 09/02/20 13:30 Anaerobic Culture - Preliminary Foot - Right Assessment and Plan (1) Noncompliance with diabetes treatment Current Visit: Yes Status: Acute Code(s): Z91.19 - PATIENT'S NONCOMPLIANCE W OTH MEDICAL TREATMENT AND REGIMEN SNOMED Code(s): 5920584 (2) Osteomyelitis Current Visit: Yes Status: Acute Code(s): M86.9 - OSTEOMYELITIS, UNSPECIFIED SNOMED Code(s): 80696442 (3) Type 2 diabetes mellitus with right diabetic foot infection Current Visit: Yes Status: Acute Code(s): E11.69 - TYPE 2 DIABETES MELLITUS WITH OTHER SPECIFIED COMPLICATION SNOMED Code(s): 26953669 (4) Diabetic foot ulcer associated with type 2 diabetes mellitus Current Visit: No Status: Acute Code(s): E11.621 - TYPE 2 DIABETES MELLITUS WITH FOOT ULCER; L97.509 - NON-PRESSURE CHRONIC ULCER OTH PRT UNSP FOOT W UNSP SEVERITY SNOMED Code(s): 4858170591600 (5) Gram-negative infection Current Visit: No Status: Acute Code(s): A49.9 - BACTERIAL INFECTION, UNSPECIFIED SNOMED Code(s): 902419312 (6) Onychomycosis due to dermatophyte Current Visit: No Status: Acute Code(s): B35.1 - TINEA UNGUIUM SNOMED Code(s): 444017794 (7) Smoker unmotivated to quit Current Visit: No Status: Acute Code(s): F17.200 - NICOTINE DEPENDENCE, UNSPECIFIED, UNCOMPLICATED SNOMED Code(s): 12793516 (8) History of transmetatarsal amputation of right foot Current Visit: Yes Status: Acute Code(s): Z89.431 - ACQUIRED ABSENCE OF RIGHT FOOT SNOMED Code(s): 169047535 Plan: We will add in basal insulin to patient's current diabetic regimen. Also plan for discharge with physical therapy wound care and antibiotics. [facility] is on-call for me starting tomorrow. This patient's wishes that he be sent home prior to the holidays and we'll try our best. Continue wound care and wound VAC to right lower extremity.
[2020-09-04] MEDS: HYDROcodone/APAP 7.5-325MG 1 EACH TAB PO PRN ×4 (00:10→22:23)
[2020-09-04] MEDS: VANCOMYCIN 2,250 MG in SODIUM CHLORIDE 0.9% 500 ML 500 ML IVPB SCH (00:11)
[2020-09-04] MEDS: AMPICILLIN-SULBACTAM 3 GM in SODIUM CHLORIDE 0.9% 100 ML IVPB SCH ×4 (05:29→22:12)
[2020-09-04] MEDS: LEVOTHYROXINE 125 MCG TAB PO SCH (06:13)
[2020-09-04] MEDS: metFORMIN 500 MG TAB PO SCH ×2 (09:16→17:45)
[2020-09-04] MEDS: LINAGLIPTIN 5 MG TABLET PO SCH (09:16)
[2020-09-04] MEDS: INSULIN DETEMIR (LEVEMIR) 100 UNIT/ML SYR SQ SCH (09:37)
[2020-09-04] MEDS: INSULIN ASPART (NovoLOG) 100 UNIT/ML VIAL SQ SCH ×4 (09:37→22:10)
[2020-09-04 10:47] LABS: Basophils # (A) 0.1 k/uL (0-0.2); Basophils % (A) 1 %; Eosinophils # (A) 0.3 k/uL (0-0.7); Eosinophils % (A) 3 %; HCT 39.1 % (39.0-53.0); HGB 12.9 gm/dL (13.0-17.5); Lymphocytes # (A) 1.6 k/uL (1.0-4.8); Lymphocytes % (A) 17 %; MCH 30.3 pg (25.0-35.0); MCHC 33.1 g/dL (31.0-37.0); MCV 91.5 fL (80.0-100.0); Monocytes # (A) 0.5 k/uL (0-1.0); Monocytes % (A) 5 %; Neutrophils # (A) 7.2 k/uL (1.3-7.7); Neutrophils % (A) 73 %; Platelet Count 357 k/uL (150-450); RBC 4.27 m/uL (4.30-5.90); RDW 13.9 % (11.5-15.5); WBC 9.9 k/uL (3.8-10.6)
[2020-09-04] MEDS ORDERED: VANCOMYCIN TROUGH DUE 1 EACH MISC MISCELLANE ONE (11:00)
[2020-09-04] MEDS ORDERED: LIDOCAINE 1% INJ 10MG/ML (20 ML MDV) SQ ONE (11:04)
[2020-09-04] MEDS ORDERED: VANCOMYCIN 2,000 MG in SODIUM CHLORIDE 0.9% 500 ML 500 ML IVPB SCH (13:00)
[2020-09-04 19:02] LABS: African American GFR (CKD) 110.3 (60.0-200.0); Anion Gap 10.4 mmol/L (4.00-12.00); BUN/Creat Ratio 12.22 Ratio (12.00-20.00); Calcium 8.7 mg/dL (8.7-10.3); Carbon Dioxide 26.6 mmol/L (21.6-31.8); Non-African American GFR(CKD) 95.1 (60.0-200.0); Potassium 4.2 mmol/L (3.5-5.5)
--- NOTE | 2020-09-04 19:16 | P.PN ---
Subjective This is a pleasant 55 years old male with multiple medical problems including diabetes mellitus. Presents with right foot diabetic ulcer with gangrene and underlying osteomyelitis of the right third toe status post amputation of the transmetatarsal bone with wound VAC placement by vascular surgery team. Patient is currently covered with Unasyn as per ID team recommendation. WBC is back to normal today at 9.9K. Patient also had high ESR 91 and high C-reactive protein 176 on admission. Wound culture is growing Enterococcus faecalis and beta-hemolytic streptococcus group C He also he had elevated hemoglobin A1c 9.4%, patient informed and he said he was taking metformin only at home, the nicotine is ad samira. as well as Levemir 10 units at bedtime and patient agrees Patient had a PICC line placed today Patient is cleared for discharge by infectious disease and vascular surgery today however as per my discussion with immigration case manager he needs to get IV antibiotics today per his insurance provider before he can be discharged tomorrow. Objective - Vital Signs Vital signs: Vital Signs Temp 98.2 F 09/04/20 11:00 Pulse 76 09/04/20 08:03 Resp 16 09/04/20 11:00 BP 148/68 09/04/20 11:00 Pulse Ox 96 09/04/20 11:00 Intake & Output 09/03/20 09/04/20 09/04/20 18:59 06:59 18:59 Intake Total 450 Output Total 300 Balance 150 Intake: Oral 450 Output: Urine 300 Other: Voiding Method Bedside Commode # Voids 3 3 3 # Bowel Movements 1 - Exam GENERAL: The patient is alert and oriented x3, not in any acute distress. Well developed, well nourished. HEENT: Pupils are round and equally reacting to light. EOMI. No scleral icterus. No conjunctival pallor. Normocephalic, atraumatic. No pharyngeal erythema. No thyromegaly. CARDIOVASCULAR: S1 and S2 present. No murmurs, rubs, or gallops. PULMONARY: Chest is clear to auscultation, no wheezing or crackles. ABDOMEN: Soft, nontender, nondistended, normoactive bowel sounds. No palpable organomegaly. MUSCULOSKELETAL: No joint swelling or deformity. -EXTREMITIES: No cyanosis, clubbing, or pedal edema. Status post amputated distal half of the right foot with wound VAC is in place NEUROLOGICAL: Gross neurological examination did not reveal any focal deficits. SKIN: No rashes. no petechiae. - Labs CBC & Chem 7: 09/04/20 10:31 09/04/20 10:31 Labs: Abnormal Lab Results - Last 24 Hours (Table) 09/03/20 09/03/20 09/03/20 Range/Units 05:04 17:15 20:06 RBC (4.30-5.90) m/uL Hgb (13.0-17.5) gm/dL POC Glucose (mg/dL) 163 H 228 H (75-99) mg/dL Hemoglobin A1c 9.4 H (4.0-6.0) % 09/04/20 Range/Units 10:31 RBC 4.27 L (4.30-5.90) m/uL Hgb 12.9 L (13.0-17.5) gm/dL POC Glucose (mg/dL) (75-99) mg/dL Hemoglobin A1c (4.0-6.0) % Microbiology - Last 24 Hours (Table) 09/01/20 19:46 Blood Culture - Preliminary Blood No Growth after 48 hours 09/01/20 19:46 Blood Culture - Preliminary Blood No Growth after 48 hours 09/01/20 19:46 Gram Stain - Final Foot - Right Wound Culture - Final Enterococcus faecalis Beta Hemolytic Strep Group C Assessment and Plan Assessment: Right foot diabetic ulcer with gangrene and osteomyelitis of the right third toe status post tarsometatarsal amputation and wound VAC placement Diabetes mellitus with hyperglycemia Hypertension Hypothyroidism Plan: This is a pleasant 55 years old male who presents with diabetic foot infection on the right side status post dilatation and wound VAC in place. Infectious disease at vascular surgery on the case. There are: To discharge the patient on 1 vancomycin with home care following. Patient of PICC line and arrange for IV antibiotics as an outpatient Continue with Levemir as well as minute lifting and metformin, a shunt instructed to check his sugar 4 times a day before each meal and at bedtime and he agrees Labs and medication were reviewed.. Continue same treatment. Continue with symptomatic treatment. Resume home medication. Monitor lytes and vitals. DVT and GI prophylaxis. Further recommendationsas per clinical course of the patient DVT prophylaxis: Subcutaneous heparin GI Prophylaxis: Pepcid Physical therapy: Home. Home health care is also arranged Prognosis is guarded
[2020-09-04] MEDS: MULTIVITAMINS, THERA 1 EACH TAB PO SCH (22:09)
[2020-09-04] MEDS: LOSARTAN-HCTZ 50-12.5 MG 1 EACH TAB PO SCH (22:09)
[2020-09-04] MEDS: HEPARIN SODIUM,PORCINE 5,000 UNIT/ML 1 ML VIAL SQ SCH (22:09)
[2020-09-04] MEDS: FAMOTIDINE 20 MG/2 ML VIAL IV SCH (22:10)
--- NOTE | 2020-09-04 22:21 | PN ---
PROGRESS NOTE DATE OF SERVICE: 09/04/2020 REASON FOR FOLLOWUP: Right diabetic foot infection with gangrene. INTERVAL HISTORY: The patient is currently afebrile. The patient is feeling better. Overall pain and discomfort to the right foot is currently controlled. The patient denies having any chest pain or cough. No abdominal pain or diarrhea. PHYSICAL EXAMINATION: Blood pressure 148/68 with a pulse of 76, temperature 98.2. He is 97% on room air. General description is a middle-aged male lying in bed in no distress. RESPIRATORY SYSTEM: Unlabored breathing. Clear to auscultation anteriorly. HEART: S1, S2. Regular rate and rhythm. ABDOMEN: Soft. No tenderness. Right transmetatarsal amputation site is currently covered with a wound V.A.C. LABS: Hemoglobin is 12.9, white count 9.9, creatinine 0.91. Wound culture with Enterococcus faecalis and Streptococcus. DIAGNOSTIC IMPRESSION AND PLAN: Patient with right diabetic foot infection with gangrene, status post transmetatarsal amputation. Culture with Enterococcus faecalis and group C strep. Antibiotic in the form of Unasyn to continue. Discontinue vancomycin. Discharge antibiotic will be Invanz 1 gram daily for 3-4 weeks and close outpatient followup. Prescription was provided to the bilingual case manager working on discharge. MMODL / IJN: [id number] /
[2020-09-05] MEDS: AMPICILLIN-SULBACTAM 3 GM in SODIUM CHLORIDE 0.9% 100 ML IVPB SCH ×2 (06:18→12:52)
[2020-09-05] MEDS: LEVOTHYROXINE 125 MCG TAB PO SCH (06:18)
[2020-09-05] MEDS: metFORMIN 500 MG TAB PO SCH (07:34)
[2020-09-05] MEDS: INSULIN DETEMIR (LEVEMIR) 100 UNIT/ML SYR SQ SCH (07:38)
[2020-09-05 07:43] LABS: Basophils # (A) 0.1 k/uL (0-0.2); Basophils % (A) 1 %; Eosinophils # (A) 0.3 k/uL (0-0.7); Eosinophils % (A) 4 %; HCT 40.8 % (39.0-53.0); HGB 13.6 gm/dL (13.0-17.5); Lymphocytes % (A) 22 %; MCH 30.7 pg (25.0-35.0); MCHC 33.4 g/dL (31.0-37.0); MCV 91.9 fL (80.0-100.0); Mean Platelet Volume 6.9; Monocytes # (A) 0.5 k/uL (0-1.0); Monocytes % (A) 5 %; Neutrophils % (A) 65 %; Platelet Count 349 k/uL (150-450); RBC 4.44 m/uL (4.30-5.90); RDW 13.7 % (11.5-15.5); WBC 9.2 k/uL (3.8-10.6)
[2020-09-05] MEDS: INSULIN ASPART (NovoLOG) 100 UNIT/ML VIAL SQ SCH ×2 (08:17→13:28)
[2020-09-05] MEDS: HEPARIN SODIUM,PORCINE 5,000 UNIT/ML 1 ML VIAL SQ SCH (08:18)
[2020-09-05] MEDS: LINAGLIPTIN 5 MG TABLET PO SCH (08:18)
[2020-09-05] MEDS: FAMOTIDINE 20 MG/2 ML VIAL IV SCH (08:23)
[2020-09-05] MEDS: HYDROcodone/APAP 7.5-325MG 1 EACH TAB PO PRN (10:48)
[2020-09-05 12:07] LABS: African American GFR (CKD) 110.3 (60.0-200.0); Anion Gap 10.6 mmol/L (4.00-12.00); BUN/Creat Ratio 13.33 Ratio (12.00-20.00); Carbon Dioxide 25.4 mmol/L (21.6-31.8); Non-African American GFR(CKD) 95.1 (60.0-200.0); Potassium 4.6 mmol/L (3.5-5.5)
[2020-09-05 12:37] LABS: INR 0.98 (0.90-1.11); Prothrombin Time 10.6 sec (9.9-11.9)
[2020-09-05] MEDS ORDERED: amLODIPine 5 MG TAB PO SCH (13:30)
[2020-09-05 13:32] VITALS: RESP 18; TEMP 98.1
[2020-09-05] MEDS ORDERED: ERTAPENEM 1 GM in SODIUM CHLORIDE 0.9% 50 ML IVPB SCH (14:00)
[2020-09-05 14:55] VITALS: BP 139/80; PULSE 67
--- NOTE | 2020-09-05 15:11 | PN ---
PROGRESS NOTE DATE OF SERVICE: 09/05/2020 REASON FOR FOLLOW UP: Right diabetic foot infection. INTERVAL HISTORY: The patient is currently afebrile. Patient is feeling better. Breathing comfortably. Denies having any chest pain or cough. No nausea. No abdominal pain. No pain to the right foot. PHYSICAL EXAMINATION: Blood pressure 157/84 with a pulse of 64, temperature 98.1, he is 96% on room air. General description is a middle-aged male up in the bed in no distress. Respiratory system: Unlabored breathing, clear to auscultation anteriorly. Heart S1, S2. Regular rate and rhythm. Abdomen is soft, no tenderness. Right foot is currently covered with a wound VAC. No drainage. LABS: No new labs have been obtained today. Local culture with Enterococcus faecalis and beta hemolytic streptococcus group C. DIAGNOSTIC IMPRESSION AND PLAN: Patient with right diabetic foot infection with wet gangrene status post transmetatarsal amputation. Local culture with strep and Enterococcus. Antibiotic switched to Invanz 1 g daily to continue for about 3-4 weeks and close outpatient followup. MMODL / IJN: [id number] /
--- NOTE | 2020-09-06 00:48 | P.DS ---
Providers Date of admission: 09/01/20 20:29 Attending physician: Niraj Parker Consults: 09/01/20 20:26 Consult Physician Urgent Consulting Provider: Vin Dorsey Consult Reason/Comments: right diabetic foot wound Do you want consulting provider notified?: Yes 09/01/20 20:27 Consult Physician Urgent Consulting Provider: Ely Ellis Consult Reason/Comments: right diabetic foot wound Do you want consulting provider notified?: Yes Primary care physician: Niraj Parker Hospital Course: Diagnoses: Right foot diabetic ulcer with gangrene and osteomyelitis of the right third toe status post tarsometatarsal amputation and wound VAC placement. Patient is discharged on IV antibiotic Diabetes mellitus with hyperglycemia Uncontrolled Hypertension, better controlled on discharge Hypothyroidism Hospital course: This is a pleasant 55 years old male with multiple medical problems including diabetes mellitus. Presents with right foot diabetic ulcer with gangrene and underlying osteomyelitis of the right third toe status post amputation of the transmetatarsal bone with wound VAC placement by vascular surgery team. Patient also had high ESR 91 and high C-reactive protein 176 on admission. Wound culture is growing Enterococcus faecalis and beta-hemolytic streptococcus group C Patient is treated with Unasyn as per ID team recommendation. WBC is back to normal today at 9.9K. however as per recommendation by Dr. Ellis patient will be discharged on Invanz for 3-4 weeks, left-sided PICC line was placed. Home health care is requested. He also he had elevated hemoglobin A1c 9.4%, patient informed and he said he was taking metformin only at home, and Januvia. Levemir 10 units at bedtime is added and patient agrees Norvasc is added and his blood pressure is better controlled upon discharge Patient was so eager to be discharged since yesterday. He denies any other symptoms, he denies chest pain or dyspnea, no abdominal pain, no change in urine or bowel habits. No fever Patient was cleared for discharge by ID team at vascular surgery team Problems and management plan were discussed with the patient and he verbalized understanding and acceptance Patient was found stable and can be discharged home however he needs follow-up as an outpatient. Patient was instructed to follow up with PCP Dr. Parker within one week and patient agrees Also patient was instructed to follow-up with Dr. blackman in one week at vascular surgeon Dr. dorsey in 1-2 weeks and he agrees to: Make his own appointments. Appointments could not be made today because it since Physical exam Gen: patient is a AAOx3, no distress CVS: S1-S2, RRR, no murmur Lungs: B/L CTA, no wheezing Abdomen: soft, no distention, no tenderness, positive bowel sounds -Extremity: no leg edema or induration. Right foot wound is healing, status post rotation of the distal half of the right foot, the wound is covered with wound VAC is in place. Time spent more than 35 minutes Patient Condition at Discharge: Good Plan - Discharge Summary Discharge Rx Participant: No New Discharge Prescriptions: New Ertapenem [INVanz] 1 gm IVPB Q24H #28 bag Insulin Detemir (Levemir) [Levemir] 10 unit SQ DAILY@0700 #1 vial amLODIPine [Norvasc] 5 mg PO DAILY #30 tab Continue Levothyroxine Sodium [Synthroid] 125 mcg PO DAILY sitaGLIPtin [Januvia] 50 mg PO HS metFORMIN HCL [Glucophage] 1,000 mg PO BID Multivitamins, Thera [Multivitamin (formulary)] 1 tab PO HS Losartan-Hctz 50-12.5 mg [Hyzaar 50-12.5] 1 tab PO HS Cinnamon Bark [Cinnamon] 500 mg PO HS Discharge Medication List Levothyroxine Sodium [Synthroid] 125 mcg PO DAILY 10/17/15 [History] Cinnamon Bark [Cinnamon] 500 mg PO HS 09/01/20 [History] Losartan-Hctz 50-12.5 mg [Hyzaar 50-12.5] 1 tab PO HS 09/01/20 [History] Multivitamins, Thera [Multivitamin (formulary)] 1 tab PO HS 09/01/20 [History] metFORMIN HCL [Glucophage] 1,000 mg PO BID 09/01/20 [History] sitaGLIPtin [Januvia] 50 mg PO HS 09/01/20 [History] Ertapenem [INVanz] 1 gm IVPB Q24H #28 bag 09/04/20 [Rx] Insulin Detemir (Levemir) [Levemir] 10 unit SQ DAILY@0700 #1 vial 09/05/20 [Rx] amLODIPine [Norvasc] 5 mg PO DAILY #30 tab 09/05/20 [Rx] Follow up Appointment(s)/Referral(s): [facility], [NON-STAFF] - 1-2 Days Niraj Parker DO [Primary Care Provider] - 1-2 days Vin Dorsey DO [STAFF PHYSICIAN] - 1 Week (1-2 weeks) Ely Ellis MD [STAFF PHYSICIAN] - 1 Week Patient Instructions/Handouts: Toe Amputation (DC) Activity/Diet/Wound Care/Special Instructions: Pt would like flu and pneumonia vaccine at discharge 1. [facility]: [phone] - please call with any questions regarding your home infusions. They will deliver supplies prior to infusion on 09/06/2020 and they will call before they come. 2. [facility] - [phone] - please call with any questions regarding your wound vac. 3. [facility] will call and set up your first visit for 09/06/2020 to begin infusions and apply your wound vac. heart healthy diabetic 1800 k.marley /day diet activity is restricted till you see your doctor right foot surgery [id number]/22/2020 Discharge Disposition: HOME WITH HOME HEALTH SERVICES
[2020-09-07 09:27] LABS: Glucose,Whole Blood 127 mg/dL (75-99)
[2020-09-07 09:27] LABS: Glucose,Whole Blood 168 mg/dL (75-99)
[2020-09-07 09:27] LABS: Glucose,Whole Blood 169 mg/dL (75-99)
[2020-09-07 09:27] LABS: Glucose,Whole Blood 144 mg/dL (75-99)
[2020-09-07 09:27] LABS: Glucose,Whole Blood 186 mg/dL (75-99)
[2020-09-07 09:27] LABS: Glucose,Whole Blood 171 mg/dL (75-99)
--- NOTE | 2020-09-11 11:45 | IR ---
PICC LINE PLACEMENT: HISTORY: Infection requiring long-term antibiotic therapy PROCEDURE: Ultrasound and fluoroscopic guidance of PICC line placement. COMPLICATIONS: None ANESTHESIA: 1. 1% Lidocaine locally. FINDINGS/TECHNIQUE: The procedure was explained to the patient. The risks, complications, benefits and alternatives were discussed and any questions were answered. Informed consent was obtained. The patient was placed supine on the fluoroscopic table and prepped and draped in the usual sterile fash ion. Utilizing a 21 gauge needle and sonographic and fluoroscopic guidance, access in the left basi lic vein was achieved and there is placement of a 0.018 guidewire. The vein is patent. A 4-F sheath was placed over the guidewire. The guidewire and dilator were removed and a 4-F. PICC line was plac ed through the sheath with the tip at the level of the SVC. The sheath was removed, the catheter was flushed and sutured into position. The patient was stable throughout the procedure and remained sta ble upon discharge from the Department of Radiology. The vein puncture was patent under ultrasound. A dawkins scale image was obtained to document patency of the vein punctured. All elements of the maximal barrier technique were utilized. FLUOROSCOPY TIME: 0.2 minutes of fluoroscopy and one images submitted IMPRESSION: Successful PICC line placement under ultrasound and fluoroscopic guidance.
== END 2020-09-05 16:12 | disposition home health service (06) | DRG 617 ==
LOC: EC 18:28 → 5NMEDONC 20:29 → 6NMEDSUR 09-02 06:37 → 5NMEDONC 09-02 10:50
PROVIDERS: ADMIT Family Medicine; ATTEND Family Medicine
PROC: 0Y6M0ZD Detachment at Right Foot, Partial 4th Ray, Open Approach (ICD-10-PCS; principal; 2020-09-02 09:05)
PROC: 0Y6M0ZF Detachment at Right Foot, Partial 5th Ray, Open Approach (ICD-10-PCS; principal; 2020-09-02 09:05)
PROC: 0Y6M0Z9 Detachment at Right Foot, Partial 1st Ray, Open Approach (ICD-10-PCS; principal; 2020-09-02 09:05)
PROC: 0Y6M0ZC Detachment at Right Foot, Partial 3rd Ray, Open Approach (ICD-10-PCS; principal; 2020-09-02 09:05)
PROC: 0Y6M0ZB Detachment at Right Foot, Partial 2nd Ray, Open Approach (ICD-10-PCS; principal; 2020-09-02 09:05)
PROC: 02HV33Z Insertion of Infusion Device into Superior Vena Cava, Percutaneous Approach (ICD-10-PCS; 2020-09-04)
DX: E11.69 Type 2 diabetes mellitus with other specified complication (principal); L03.115 Cellulitis of right lower limb; M86.671 Other chronic osteomyelitis, right ankle and foot; L97.516 Non-pressure chronic ulcer of other part of right foot with bone involvement without evidence of necrosis; E11.52 Type 2 diabetes mellitus with diabetic peripheral angiopathy with gangrene; I96 Gangrene, not elsewhere classified; E11.628 Type 2 diabetes mellitus with other skin complications; E11.621 Type 2 diabetes mellitus with foot ulcer; B35.1 Tinea unguium; I10 Essential (primary) hypertension; E03.9 Hypothyroidism, unspecified; B95.2 Enterococcus as the cause of diseases classified elsewhere; L97.519 Non-pressure chronic ulcer of other part of right foot with unspecified severity; F17.200 Nicotine dependence, unspecified, uncomplicated; E07.9 Disorder of thyroid, unspecified; F17.210 Nicotine dependence, cigarettes, uncomplicated; Z91.19 Patient's noncompliance with other medical treatment and regimen; Z79.890 Hormone replacement therapy; Z79.899 Other long term (current) drug therapy; Z80.9 Family history of malignant neoplasm, unspecified; Z98.890 Other specified postprocedural states; Z79.4 Long term (current) use of insulin
CPT/HCPCS: 36415; 36573; 80048; 80053; 80061; 80202; 83036; 83605; 85025; 85027; 85610; 85652; 86140; 87040; 87070; 87075; 87077; 87186; 87205; 88307; 88311; 96365; 96366; 96367; 99285